=== PATIENT | female | born 1985 | race American Indian/Alaskan Native ===

== ENCOUNTER 2017-01-19 00:23 | Emergency (ER) | payer OTHER ==
[2017-01-19 01:25] VITALS: RESP 16; TEMP 98.4
--- NOTE | 2017-01-19 01:36 | ED PDOC ---
HPI: Psych/Substance Abuse Time Seen by Provider: 01/19/17 00:56 Chief Complaint (Nursing): Ingestion, Accidental Chief Complaint (Provider): Ingestion, Accidental History Per: Patient History/Exam Limitations: no limitations Onset/Duration Of Symptoms: Hrs Current Symptoms Are (Timing): Still Present Suicide/Self Injury Attempted (Context): None Additional Complaint(s): Liss Rivera is a 31 year old female, with no past medical history, who presents to the emergency department for weakness evaluation associated with dizziness onset prior to arrival. Patient reports she was eating at a [employer] restaurant, but when she got home she felt disoriented and light headed. The symptoms persisted on route to ED and still feels dizzy when walking. Patient reports feeling intermittent palpitations. She denies any nausea, vomit, diarrhea, and abdominal pain. PMD: None provided. Past Medical History Reviewed: Historical Data, Nursing Documentation, Vital Signs Vital Signs: Last Vital Signs Temp 98.4 F 01/19/17 01:19 Pulse 107 H 01/19/17 01:19 Resp 16 01/19/17 01:19 BP 136/76 01/19/17 01:19 Pulse Ox 100 01/19/17 01:19 - Medical History PMH: No Chronic Diseases - Family History Family History: States: Unknown Family Hx - Allergies Allergies/Adverse Reactions: Allergies Allergy/AdvReac Type Severity Reaction Status Date / Time No Known Allergies Allergy Verified 01/19/17 01:25 Review of Systems ROS Statement: Except As Marked, All Systems Reviewed And Found Negative Constitutional: Positive for: Weakness (generalized) Cardiovascular: Positive for: Palpitations (intermittent ), Light Headedness Gastrointestinal: Negative for: Nausea, Vomiting, Abdominal Pain, Diarrhea Neurological: Positive for: Dizziness, Other (disoriented) Physical Exam - Reviewed Nursing Documentation Reviewed: Yes Vital Signs Reviewed: Yes - Physical Exam Appears: Positive for: Well, No Acute Distress Head Exam: Positive for: ATRAUMATIC, NORMAL INSPECTION, NORMOCEPHALIC Skin: Positive for: Normal Color, Warm, Dry Eye Exam: Positive for: EOMI, PERRL. Negative for: Normal appearance ( bloodshot eyes) ENT: Positive for: Normal ENT Inspection Neck: Positive for: Normal, Painless ROM, Supple Cardiovascular/Chest: Positive for: Regular Rate, Rhythm. Negative for: Murmur Respiratory: Positive for: Normal Breath Sounds. Negative for: Respiratory Distress Gastrointestinal/Abdominal: Positive for: Normal Exam, Bowel Sounds, Soft. Negative for: Tenderness Back: Positive for: Normal Inspection. Negative for: L CVA Tenderness, R CVA Tenderness Extremity: Positive for: Normal ROM. Negative for: Tenderness, Pedal Edema, Deformity Neurologic/Psych: Positive for: Alert, Oriented. Negative for: Motor/Sensory Deficits - Laboratory Results Result Diagrams: 01/19/17 01:58 01/19/17 01:58 - ECG O2 Sat by Pulse Oximetry: 100 (RA) Pulse Ox Interpretation: Normal Medical Decision Making Medical Decision Making: Initial Impression: Alcohol intoxication Initial Plan: --EKG --Acetaminophen --Alcohol serum --Basic Metabolic Paenl --Drug screen, urine --Salicylate --CBC w/ differential --Urinalysis --reevaluation 0340 -Upon provider reevaluation patient is feeling better, is medically stable, and requires no further treatment in the ED at this time. Patient will be discharged home. Scribe Attestation: Documented by Yobany Contreras, acting as a scribe for Zev Mariano MD. Provider Scribe Attestation: All medical record entries made by the Scribe were at my direction and personally dictated by me. I have reviewed the chart and agree that the record accurately reflects my personal performance of the history, physical exam, medical decision making, and the department course for this patient. I have also personally directed, reviewed, and agree with the discharge instructions and disposition. Disposition - Clinical Impression Clinical Impression: Cannabis abuse - Disposition Referrals: [facility] [Outside] Disposition Time: 03:40 Condition: IMPROVED Instructions: Cannabis Abuse (ED) Forms: [employer] (Malaysian)
[2017-01-19 02:00] LABS: RBC URINE 5 /hpf (0-3); URINE BACTERIA RARE (<OCC); URINE BILIRUBIN NEGATIVE (NEGATIVE); URINE BLOOD SMALL (NEGATIVE); URINE COLOR YELLOW (YELLOW); URINE GLUCOSE (UA) NEG (Normal); URINE KETONE NEGATIVE (NEGATIVE); URINE LEUKOCYTE ESTERASE NEGATIVE Leu/uL (Negative); URINE PROTEIN NEGATIVE (NEGATIVE); URINE UROBILINOGEN 0.2-1.0 mg/dL (0.2-1.0); WBC URINE 1 /hpf (0-5)
[2017-01-19 02:01] LABS: BASO # 0.2 K/uL (0.0-0.2); BASO % 1.3 % (0.0-2.0); EOS % 0.1 % (0.0-4.0); HEMATOCRIT 41.5 % (34.0-47.0); LYMPH # 0.9 K/uL (1.0-4.3); LYMPH % 6.2 % (20.0-40.0); MEAN CELL VOLUME 90.4 fl (81.0-99.0); MEAN CORPUSCULAR HEMOGLOBIN 29.9 pg (27.0-31.0); MEAN CORPUSCULAR HGB CONC 33.1 g/dL (33.0-37.0); MEAN PLATELET VOLUME 7.7 fl (7.2-11.7); MONO # 0.4 K/uL (0.0-0.8); MONO % 3.2 % (0.0-10.0); NEUT # 12.3 K/uL (1.8-7.0); NEUT % 89.2 % (50.0-75.0); PLATELET COUNT 262 K/uL (130-400); RED CELL DISTRIBUTION WIDTH 12.9 % (11.5-14.5); WHITE BLOOD COUNT 13.8 K/uL (4.8-10.8)
[2017-01-19 02:17] LABS: ALCOHOL SERUM < 10 mg/dl (0-10); BLOOD UREA NITROGEN 13 mg/dl (7-17); CALCIUM 9.1 mg/dL (8.4-10.2); CARBON DIOXIDE 25 mmol/L (22-30); CHLORIDE 103 mmol/L (98-107); GFR AFRICAN-AMERICAN > 60; GLUCOSE,RANDOM 139 mg/dL (65-105); SODIUM 135 mmol/l (132-148)
[2017-01-19 02:54] LABS: NEUTROPHIL 92 % (42-75); TOTAL CELLS COUNTED 100
[2017-01-19 02:55] LABS: LARGE PLATELETS PRESENT
[2017-01-19 03:54] VITALS: BP 122/76; PULSE 88; O2SAT 99
--- NOTE | 2017-01-21 11:23 | CARD ---
APPROVED REPORT EKG Measurement Heart [id number] <Conclusion> Normal sinus rhythm Normal ECG
== END 2017-01-19 03:54 | disposition home or self-care (01) ==
LOC: H.ER 00:23
DX: F12.10 Cannabis abuse, uncomplicated (principal)